=== PATIENT | male | born 1995 | race Two or more races ===

== ENCOUNTER 2016-07-16 13:00 | Emergency (ER) | payer SELFPAY ==
[2016-07-16] MEDS ORDERED: PENICILLIN G BENZATHINE 1.2 MMU/2 ML SYRINGE IM ONE (14:15)
[2016-07-16] MEDS ORDERED: PREDNISONE 20 MG TABLET ONE (14:15)
== END 2016-07-16 14:45 | disposition home or self-care (01) ==
LOC: ED 13:00
DX: J02.0 Streptococcal pharyngitis (principal); F17.210 Nicotine dependence, cigarettes, uncomplicated

== ENCOUNTER 2016-08-17 11:26 | Emergency (ER) | payer SELFPAY ==
--- NOTE | 2016-08-17 12:06 | RAD ---
Exam: Two-view chest COMPARISON: 01/25/2011 INDICATION: Left-sided chest pain since last night. FINDINGS: PA and lateral views of the chest were obtained. Cardiac silhouette is within normal limits and stable. Lungs are well-inflated. There is no focal airspace disease or pleural effusion. No pneumothorax is identified. Bones of the chest wall within normal limits. IMPRESSION: Negative two-view chest.
== END 2016-08-17 13:28 | disposition home or self-care (01) ==
LOC: ED 11:26
DX: R07.9 Chest pain, unspecified (principal); F17.210 Nicotine dependence, cigarettes, uncomplicated